=== PATIENT | female | born 1960 | race Caucasian/White ===

== ENCOUNTER 2017-01-29 12:57 | Emergency (ER) | payer OTHER ==
[~2017-01-29] VITALS: Ht 175.3 cm; Wt 86.4 kg
[~2017-01-29 12:57] MED LIST: ALEVE 220MG220 MG PO; COLACE 100100 MG/CAP PO; COUMADIN4 MG PO; COZAAR100 MG PO; FOLIC ACID0.4 MG PO; GRALISE600 MG PO; IRON TABLETS325 MG PO; NORCO 325 MG-7.1 TAB PO; TEGRETOL 2200 MG/TA1; TEGRETOL 2200 MG/TA1 PO; VITAMIN C500 MG PO; ZESTRIL 10MG10 MG PO; ZESTRIL 20MG TA20 MG PO; ZOLOFT 25MG25 MG PO
[2017-01-29 12:59] VITALS: PULSE 84; TEMP 97.1
[2017-01-29 13:54] VITALS: BP 151/107
== END 2017-01-29 13:48 | disposition home or self-care (01) ==
LOC: COL.ER 12:57
DX: S01.01XA Laceration without foreign body of scalp, initial encounter (principal); W22.03XA Walked into furniture, initial encounter; Y92.009 Unspecified place in unspecified non-institutional (private) residence as the place of occurrence of the external cause; F17.210 Nicotine dependence, cigarettes, uncomplicated; I10 Essential (primary) hypertension

== ENCOUNTER 2017-02-03 16:10 | Emergency (ER) | payer OTHER ==
[2017-02-03 16:13] VITALS: BP 143/98; PULSE 85; TEMP 98.4
== END 2017-02-03 16:19 | disposition home or self-care (01) ==
LOC: COL.ER 16:10
DX: Z48.02 Encounter for removal of sutures (principal)

== ENCOUNTER → 2019-05-06 | Outpatient (CLI) | payer BC | LOC: MC.RAD 08:37 | DX: Z12.31 Encounter for screening mammogram for malignant neoplasm of breast (principal) ==